=== PATIENT | female | born 1995 | race African-American/Black ===

== ENCOUNTER 2019-11-21 09:05 | Emergency (ER) | payer OTHER ==
[~2019-11-21] VITALS: Ht 152.4 cm; Wt 54.4 kg
[2019-11-21] MEDS ORDERED: ANTICONCEPTIVAS PO (09:17)
== END 2019-11-21 13:33 | disposition home or self-care (01) ==
LOC: ER 09:05
DX: B33.8 Other specified viral diseases (principal); B96.0 Mycoplasma pneumoniae [M. pneumoniae] as the cause of diseases classified elsewhere